=== PATIENT | male | born 1985 | race African-American/Black ===

== ENCOUNTER 2020-06-06 23:37 | Emergency (ER) | payer BC, OTHER ==
[~2020-06-06] VITALS: Ht 157.5 cm; Wt 61.2 kg
[2020-06-07 03:39] VITALS: BP 107/62
== END 2020-06-07 03:42 | disposition home or self-care (01) ==
LOC: ER 23:37
DX: J06.9 Acute upper respiratory infection, unspecified (principal); B97.89 Other viral agents as the cause of diseases classified elsewhere; Z20.828 Contact with and (suspected) exposure to other viral communicable diseases

== ENCOUNTER 2021-08-23 16:46 | Emergency (ER) | payer BC, OTHER ==
[~2021-08-23] VITALS: Ht 172.7 cm; Wt 61.2 kg
[2021-08-23 18:20] VITALS: BP 109/64
== END 2021-08-23 18:24 | disposition home or self-care (01) ==
LOC: ER 16:46
PROVIDERS: Physician Assistant
DX: R53.1 Weakness (principal); J02.9 Acute pharyngitis, unspecified; R05 Cough; Z20.822 Contact with and (suspected) exposure to COVID-19

== ENCOUNTER 2021-10-06 21:54 | Emergency (ER) | payer BC, OTHER ==
[~2021-10-06] VITALS: Ht 172.7 cm; Wt 61.2 kg
[2021-10-07 00:45] VITALS: BP 93/62
--- NOTE | 2021-10-11 15:07 | PATH ---
[facility] [place] [address] PATHOLOGY RPT PROCEDURE Name: DANDY VIRGEN Room #: DEP Cathie#: [id number] Admission: 10/06/21 Date of : 87 Discharge: 10/07/21 Report #: [id number] Path Case #: [id number] [facility] Accession Number: [id number] . 01 Material submitted: . esophagus - PROXIMAL ESOPHAGUS BIOPSY RULE OUT EOE. Modifiers: proximal . 01 Clinical history: . EGD FOOD BOLUS IMPACTION . 02 Diagnosis: Esophagus, endoscopic biopsy: - Fragments of squamous mucosa with mild esophagitis. - Features of eosinophilic esophagitis are not identified. - A GMS for fungus is negative. (ANK/db; 10/11/2021) LBQ 10/11/2021 1446 Local . 02 Comment: Comment: No increase in eosinophils identified. Recommend clinical and endoscopic correlation. . 02 Electronically signed: . Lynsey Harris MD, Pathologist NPI- [id number] . 01 Gross description: . The specimen is received in formalin, labeled "Dandy Virgen, proximal esophagus biopsy R/O EOE" and consists of multiple pale [place], translucent irregular tissues aggregating 0.8 x 0.5 x 0.1 cm which are filtered and submitted in toto in A1.(ORUTSARARMIUT; 10/10/2021) DKA/DKA 10/10/2021 1558 Local . 02 Pathologist provided ICD-10: K20.90 . 02 CPT . 246660, 662451 Specimen Comment: Report sent to Performed at: 01 [facility] [address] [facility] [address], [place] [id number] MD Rubin Manzano MD Phone: [phone] Performed at: 02 [facility] [address] [place] [address] PATHOLOGY RPT PROCEDURE Name: DANDY VIRGEN Room #: DEP [facility]#: [id number] Admission: 10/06/21 Date of : 87 Discharge: 10/07/21 Report #: [id number] Path Case #: [id number] [address] [place], [place] [id number] MD Celina Brady MD Phone: [phone]
== END 2021-10-07 00:45 | disposition home or self-care (01) ==
LOC: ER 21:54
DX: T18.120A Food in esophagus causing compression of trachea, initial encounter (principal); Z20.822 Contact with and (suspected) exposure to COVID-19; F12.90 Cannabis use, unspecified, uncomplicated; W61.32XA Struck by chicken, initial encounter; Y93.89 Activity, other specified; Y92.89 Other specified places as the place of occurrence of the external cause; Y99.8 Other external cause status
CPT/HCPCS: 62110; 62900; 70005